=== PATIENT | female | born 1940 | race Caucasian/White ===

== ENCOUNTER 2020-05-07 15:46 | Emergency (ER) | payer MEDICARE, OTHER ==
[~2020-05-07] VITALS: Ht 157.5 cm; Wt 56.4 kg
[2020-05-07] MEDS ORDERED: POLY17PO10 PO (16:10)
[2020-05-07] MEDS ORDERED: HYDR25SU32 RC (16:10)
[2020-05-07] MEDS ORDERED: DOCU-91 PO (16:10)
[2020-05-07 16:39] VITALS: BP 129/69
--- NOTE | 2020-05-07 16:39 | NUR ---
DISCHARGING PATIENT FOR PRIMARY RN KATTY
== END 2020-05-07 16:44 | disposition home or self-care (01) ==
LOC: ER 15:47
DX: K64.9 Unspecified hemorrhoids (principal); K59.00 Constipation, unspecified; Z88.5 Allergy status to narcotic agent; Z79.899 Other long term (current) drug therapy
CPT/HCPCS: 99283

== ENCOUNTER 2020-05-12 07:39 | Emergency (ER) | payer MEDICARE, OTHER ==
[~2020-05-12] VITALS: Ht 157.5 cm; Wt 55.7 kg
[~2020-05-12 07:39] MED LIST: DOCU-91 PO; HYDR25SU32 RC; POLY17PO10 PO
[2020-05-12 09:06] LABS: BASOPHILS % (AUTO) 0.5 % (0-1); EOSINOPHILS % (AUTO) 0.1 % (0-6); HEMOGLOBIN 11.2 g/dl (12.0-16.0); LYMPHOCYTES # (AUTO) 1.1 X10'3 (1.1-4.8); LYMPHOCYTES % (AUTO) 14.8 % (21-51); MEAN CORPUSCULAR HEMOGLOBIN 29.2 PG (27.0-31.0); MEAN CORPUSCULAR HGB CONC 32.8 g/dL (33.0-36.5); MEAN PLATELET VOLUME 6.7 FL (7.4-10.4); MONOCYTES # (AUTO) 0.6 X10'3 (0-0.9); MONOCYTES % (AUTO) 8.7 % (2-12); NEUTROPHILS # (AUTO) 5.4 X10'3 (1.8-7.7); NEUTROPHILS % (AUTO) 75.9 % (42-75); PLATELET COUNT 399 X10'3 (140-440); RED BLOOD COUNT 3.83 X10'6 (4.20-5.60); RED CELL DISTRIBUTION WIDTH 13.1 % (11.5-14.5); WHITE BLOOD COUNT 7.1 X10'3 (4.5-11.0)
[2020-05-12 09:17] LABS: ALANINE AMINOTRANSFERASE 40 U/L (12-78); ALBUMIN 2.9 G/DL (3.4-5.0); ALBUMIN/GLOBULIN RATIO 0.8 (1.1-1.5); ALKALINE PHOSPHATASE 107 IU/L (46-116); ANION GAP 7 (8-16); ASPARTATE AMINO TRANSFERASE 58 U/L (10-37); BLOOD UREA NITROGEN 19 MG/DL (7-18); BUN/CREATININE RATIO 24.4 (6.6-38.0); CALCIUM 8.8 MG/DL (8.5-10.1); CHLORIDE 104 MMOL/L (99-107); CREATININE 0.78 MG/DL (0.40-0.90); GLUCOSE 92 MG/DL (70-104); LIPASE 65 U/L (73-393); POTASSIUM 3.7 MMOL/L (3.5-5.1); SODIUM 140 MMOL/L (135-145); TOTAL PROTEIN 6.6 G/DL (6.4-8.2); eGFR 71 ML/MIN
[2020-05-12] MEDS ORDERED: iohexol 300mg/ml 100ml inj. ONE (09:31)
[2020-05-12 09:56] LABS: CLARITY,URINE SLIGHTLY CLOUDY (Clear); COLOR,URINE YELLOW (Yellow); GLUCOSE, URINE NEGATIVE (Neg); LEUKOCYTE ESTERASE ,URINE NEGATIVE (Neg); NITRITES, URINE NEGATIVE (Neg); OCCULT BLOOD,URINE NEGATIVE (Neg)
[2020-05-12 09:59] LABS: KETONES,URINE 40 mg/dl (Neg); PROTEIN,URINE NEGATIVE (Neg)
[2020-05-12 10:01] LABS: UA COLLECTION TYPE STRAIGHT CATH
[2020-05-12 10:05] LABS: MUCUS STRANDS MANY /LPF (Neg); SQUAMOUS EPITHELIAL CELL,UR FEW /LPF (FEW)
[2020-05-12 10:09] LABS: BACTERIA,URINE FEW /HPF (Neg); RBC,URINE 0-2 /HPF (0-2); WBC,URINE 0-4 /HPF (0-4)
[2020-05-12] MEDS ORDERED: MAGN400O6 PO (11:12)
[2020-05-12 11:13] VITALS: BP 125/82
== END 2020-05-12 11:59 | disposition home or self-care (01) ==
LOC: ER 07:40
DX: K59.00 Constipation, unspecified (principal); R18.0 Malignant ascites; Z98.890 Other specified postprocedural states; Z88.8 Allergy status to other drugs, medicaments and biological substances; Z79.899 Other long term (current) drug therapy
CPT/HCPCS: 36415; 74177; 80053; 81001; 83690; 85025; 93005; 99285; Q9967

== ENCOUNTER 2020-06-03 08:35 | Day surgery (SDC) | payer MEDICARE, OTHER ==
[~2020-06-03] VITALS: Ht 157.5 cm; Wt 61.9 kg
[~2020-06-03 08:35] MED LIST changes: +MAGN400O6 PO
[2020-06-03] MEDS ORDERED: normal saline 1000ml 1,000 ML IV PRN (09:20)
[2020-06-03 09:30] VITALS: BP 152/92
[2020-06-03] MEDS ORDERED: LEVO112T72 PO (10:05)
[2020-06-03] MEDS ORDERED: HYDR25TA4 PO (10:05)
[2020-06-03] MEDS ORDERED: DONE-46 PO (10:05)
[2020-06-03] MEDS ORDERED: ATOR40TA72 PO (10:05)
[2020-06-03] MEDS ORDERED: HYDR-3964 PO (10:05)
[2020-06-03] MEDS ORDERED: PANT40TA54 PO (10:05)
[2020-06-03 10:12] LABS: BASOPHILS % (AUTO) 0.7 % (0-1); EOSINOPHILS % (AUTO) 0.2 % (0-6); HEMATOCRIT 39.7 % (35.0-45.0); HEMOGLOBIN 13.2 g/dl (12.0-16.0); LYMPHOCYTES # (AUTO) 1.6 X10'3 (1.1-4.8); LYMPHOCYTES % (AUTO) 21.8 % (21-51); MEAN CORPUSCULAR HEMOGLOBIN 30.2 PG (27.0-31.0); MEAN CORPUSCULAR HGB CONC 33.3 g/dL (33.0-36.5); MEAN CORPUSCULAR VOLUME 90.6 FL (78-98); MEAN PLATELET VOLUME 7.6 FL (7.4-10.4); MONOCYTES # (AUTO) 0.6 X10'3 (0-0.9); NEUTROPHILS # (AUTO) 5.1 X10'3 (1.8-7.7); NEUTROPHILS % (AUTO) 69.3 % (42-75); PLATELET COUNT 430 X10'3 (140-440); RED BLOOD COUNT 4.38 X10'6 (4.20-5.60); RED CELL DISTRIBUTION WIDTH 14.8 % (11.5-14.5); WHITE BLOOD COUNT 7.3 X10'3 (4.5-11.0)
--- NOTE | 2020-06-03 12:00 | NUR ---
Dr. Nuno came and changed from CT guided liver biopsy to paracentesis. Addendum: 06/03/20 at 1719 by Albert Palacios RN Amended: Links added.
[2020-06-03 12:07] VITALS: BP 134/84
[2020-06-03 12:15] VITALS: BP 137/80
[2020-06-03] MEDS ORDERED: albumin (human) 25% 100 ML IV solution IV ONE (12:25)
[2020-06-03 12:30] VITALS: BP 128/74
[2020-06-03 12:45] VITALS: BP 136/72
[2020-06-03 13:03] LABS: GLUCOSE,BODY FLUID 78 MG/DL; LDH,BODY FLUID 178 U/L
[2020-06-03 14:09] LABS: LYMPHOCYTES,BODY FLUID 71 %; MONOCYTES,BODY FLUID 28 %; NEUTROPHILS,BODY FLUID 1 %
[2020-06-03 14:10] LABS: BF RBC COUNT 1575 /CU MM; BF WBC COUNT 368 /CU MM (0-1000); BFAPPEAR CLEAR; BFCOLOR YELLOW; BFVOLUME 65 ML
[2020-06-03 14:11] LABS: OTHER CELLS,BODY FLUID MACROPHAGES
== END 2020-06-03 13:40 | disposition home or self-care (01) ==
LOC: SSTAY O 08:35
PROVIDERS: ATTEND Radiology Diagnostic Radiology
DX: R18.8 Other ascites (principal); K76.89 Other specified diseases of liver; K74.60 Unspecified cirrhosis of liver; Z85.3 Personal history of malignant neoplasm of breast; Z85.850 Personal history of malignant neoplasm of thyroid; Z90.13 Acquired absence of bilateral breasts and nipples; Z88.5 Allergy status to narcotic agent; Z79.899 Other long term (current) drug therapy
CPT/HCPCS: 36415; 49083; 82945; 83615; 84157; 85025; 87070; 89051; J7030; P9047; 88108; 88305

== ENCOUNTER 2020-06-14 09:23 | Emergency (ER) | payer MEDICARE, OTHER ==
[~2020-06-14] VITALS: Ht 157.5 cm; Wt 61.0 kg
[~2020-06-14 09:23] MED LIST changes: +ATOR40TA72 PO; +DONE-46 PO; +HYDR-3964 PO; +HYDR25TA4 PO; +LEVO112T72 PO; +PANT40TA54 PO; -POLY17PO10 PO
[2020-06-14 10:05] LABS: BASOPHILS % (AUTO) 0.4 % (0-1); EOSINOPHILS % (AUTO) 0.2 % (0-6); HEMOGLOBIN 11.1 g/dl (12.0-16.0); LYMPHOCYTES % (AUTO) 17.3 % (21-51); MEAN CORPUSCULAR HGB CONC 33.7 g/dL (33.0-36.5); MEAN CORPUSCULAR VOLUME 89.1 FL (78-98); MEAN PLATELET VOLUME 6.7 FL (7.4-10.4); MONOCYTES # (AUTO) 0.6 X10'3 (0-0.9); MONOCYTES % (AUTO) 10.3 % (2-12); NEUTROPHILS # (AUTO) 4.3 X10'3 (1.8-7.7); NEUTROPHILS % (AUTO) 71.8 % (42-75); PLATELET COUNT 437 X10'3 (140-440); RED CELL DISTRIBUTION WIDTH 14.6 % (11.5-14.5)
[2020-06-14] MEDS ORDERED: albumin (human) 25% 100 ML IV solution IV ONE (10:05)
[2020-06-14 10:20] LABS: ALANINE AMINOTRANSFERASE 27 U/L (12-78); ALBUMIN 2.7 G/DL (3.4-5.0); ALBUMIN/GLOBULIN RATIO 0.7 (1.1-1.5); ALKALINE PHOSPHATASE 118 IU/L (46-116); ANION GAP 10 (8-16); ASPARTATE AMINO TRANSFERASE 52 U/L (10-37); BILIRUBIN,TOTAL 0.9 MG/DL (0.1-1.0); BLOOD UREA NITROGEN 23 MG/DL (7-18); BUN/CREATININE RATIO 22.5 (6.6-38.0); CALCIUM 8.2 MG/DL (8.5-10.1); CHLORIDE 102 MMOL/L (99-107); CREATININE 1.02 MG/DL (0.40-0.90); GLUCOSE 89 MG/DL (70-104); POTASSIUM 4.1 MMOL/L (3.5-5.1); SODIUM 140 MMOL/L (135-145); TOTAL CARBON DIOXIDE 28.1 MMOL/L (24-32); TOTAL PROTEIN 6.6 G/DL (6.4-8.2); eGFR 52 ML/MIN
[2020-06-14 11:30] VITALS: BP 132/73
[2020-06-14 11:31] LABS: BODY FLUID PH (NON-PLEURAL) 7.5
[2020-06-14 11:51] LABS: BF MESOTHELIAL CELLS OCCASIONAL; BF RBC COUNT 14500 /CU MM; BF WBC COUNT 350 /CU MM (0-1000); BFAPPEAR BLOODY; BFCOLOR RED; BFVOLUME 56 ML; LYMPHOCYTES,BODY FLUID 75 %; MONOCYTES,BODY FLUID 24 %; NEUTROPHILS,BODY FLUID 1 %
[2020-06-14 11:52] LABS: GLUCOSE,BODY FLUID 80 MG/DL; TOTAL PROTEIN,BODY FLUID 3.6 G/DL
== END 2020-06-14 12:00 | disposition home or self-care (01) ==
LOC: ER 09:23
DX: R18.8 Other ascites (principal); R14.0 Abdominal distension (gaseous); R06.02 Shortness of breath; R10.84 Generalized abdominal pain; K59.00 Constipation, unspecified; Z85.3 Personal history of malignant neoplasm of breast; Z98.890 Other specified postprocedural states; Z88.5 Allergy status to narcotic agent; Z79.899 Other long term (current) drug therapy
CPT/HCPCS: 36415; 49083; 71045; 80053; 82945; 83986; 84157; 85025; 87070; 89051; 93005; 96374; 99285; P9047; 87186

== ENCOUNTER 2020-07-08 07:22 | Observation (INO) | payer MEDICARE, OTHER ==
[~2020-07-08] VITALS: Ht 157.5 cm; Wt 55.9 kg
[~2020-07-08 07:22] MED LIST changes: +CALC500T11 PO; -DOCU-91 PO; +FAMO20TA47 PO; -HYDR25SU32 RC; -MAGN400O6 PO; -PANT40TA54 PO; +POLY119P2 PO
[2020-07-08 08:34] LABS: BASOPHILS % (AUTO) 0.4 % (0-1); EOSINOPHILS % (AUTO) 0.1 % (0-6); HEMATOCRIT 32.8 % (35.0-45.0); HEMOGLOBIN 10.8 g/dl (12.0-16.0); LYMPHOCYTES % (AUTO) 16.5 % (21-51); MEAN CORPUSCULAR HGB CONC 32.8 g/dL (33.0-36.5); MEAN CORPUSCULAR VOLUME 88.2 FL (78-98); MEAN PLATELET VOLUME 6.6 FL (7.4-10.4); MONOCYTES # (AUTO) 0.7 X10'3 (0-0.9); MONOCYTES % (AUTO) 12.3 % (2-12); NEUTROPHILS # (AUTO) 4.3 X10'3 (1.8-7.7); NEUTROPHILS % (AUTO) 70.7 % (42-75); PLATELET COUNT 384 X10'3 (140-440); RED BLOOD COUNT 3.71 X10'6 (4.20-5.60); RED CELL DISTRIBUTION WIDTH 15.9 % (11.5-14.5)
[2020-07-08 08:44] LABS: ALANINE AMINOTRANSFERASE 25 U/L (12-78); ALBUMIN 2.2 G/DL (3.4-5.0); ALBUMIN/GLOBULIN RATIO 0.6 (1.1-1.5); ALKALINE PHOSPHATASE 112 IU/L (46-116); ANION GAP 7 (8-16); ASPARTATE AMINO TRANSFERASE 54 U/L (10-37); BILIRUBIN,TOTAL 0.6 MG/DL (0.1-1.0); BLOOD UREA NITROGEN 24 MG/DL (7-18); BUN/CREATININE RATIO 24.5 (6.6-38.0); CALCIUM 7.6 MG/DL (8.5-10.1); CHLORIDE 102 MMOL/L (99-107); CREATININE 0.98 MG/DL (0.40-0.90); GLUCOSE 69 MG/DL (70-104); POTASSIUM 4.3 MMOL/L (3.5-5.1); SODIUM 135 MMOL/L (135-145); TOTAL CARBON DIOXIDE 26.1 MMOL/L (24-32); TOTAL PROTEIN 5.7 G/DL (6.4-8.2); eGFR 54 ML/MIN
[2020-07-08 08:47] LABS: TROPONIN I < 0.04 NG/ML (0.0-0.05)
[2020-07-08] MEDS ORDERED: labetalol 100mg tablet PO SCH (10:05)
[2020-07-08] MEDS ORDERED: lisinopril 10 MG tablet PO ONE (10:05)
[2020-07-08] MEDS ORDERED: mag hydrox/Alum hydrox/simeth 30ml oral suspension PO PRN (10:40)
[2020-07-08] MEDS ORDERED: magnesium hydroxide 30ml (MOM) UD suspension PO PRN (10:40)
[2020-07-08] MEDS ORDERED: acetaminophen 325mg tablet PO PRN ×2 (10:40)
[2020-07-08] MEDS ORDERED: morphine 2 MG/ML inj. syringe IV PRN ×2 (10:40)
[2020-07-08] MEDS ORDERED: ondansetron/PF 4mg/2ml inj IV PRN (10:40)
[2020-07-08] MEDS: dextrose 5%-1/2 normal saline 1,000 ML IV SCH ×3 (11:20→23:58)
--- NOTE | 2020-07-08 11:47 | NUR ---
SISTER TANO [phone]
[2020-07-08 12:26] LABS: BASOPHILS,BODY FLUID 1 %; BF MESOTHELIAL CELLS FEW; BF RBC COUNT 730 /CU MM; BF WBC COUNT 200 /CU MM (0-1000); BFAPPEAR HAZY; BFCOLOR YELLOW; BFVOLUME 22 ML; LYMPHOCYTES,BODY FLUID 94 %; MONOCYTES,BODY FLUID 4 %; NEUTROPHILS,BODY FLUID 1 %
[2020-07-08] MEDS ORDERED: ANUHCR RC (12:26)
[2020-07-08 12:27] LABS: BF UNCLASSIFIED CELLS OCCASIONAL
--- NOTE | 2020-07-08 12:31 | NUR ---
Ramone parra in [facility] - 07/08/20 at 1625 by NINA Pg sent to Dr. Estrada re: lab call regarding CSF sample
--- NOTE | 2020-07-08 12:31 | NUR ---
Pg to Dr. Estrada re: cytology report, awaiting return pg
[2020-07-08 15:00] VITALS: BP 98/57
--- NOTE | 2020-07-08 16:25 | NUR ---
error in notes from 1231, was cytology report, not CSF
--- NOTE | 2020-07-08 16:34 | NUR ---
FARRUKH richardson f/u with re: lab result from cytology
--- NOTE | 2020-07-08 16:40 | NUR ---
Pt Juliet Issa [id number], new patient received para in ED, lab found possible malignant cells in fluid, do you want a cytology? Lab needs to know madi. Vicki Boyd [facility] [phone]
[2020-07-08 18:00] VITALS: BP 94/53
--- NOTE | 2020-07-08 18:53 | NUR ---
Patient in room PCU 3025. I have received report from Vicki CHADWICK and had the opportunity to ask questions and assume patient care.Pt is resting. No signs of distress, will continue to monitor.
[2020-07-08 22:00] VITALS: BP 97/55
[2020-07-09 06:00] VITALS: BP 105/70
--- NOTE | 2020-07-09 06:29 | NUR ---
Problems reprioritized. Patient report given, questions answered & plan of care reviewed with Priscila CHADWICK.
--- NOTE | 2020-07-09 06:33 | NUR ---
Patient in room PCU 3025. I have received report from Stephanie CHADWICK and had the opportunity to ask questions and assume patient care.
[2020-07-09 07:16] LABS: BASOPHILS % (AUTO) 0.5 % (0-1); EOSINOPHILS % (AUTO) 0.3 % (0-6); HEMATOCRIT 29.3 % (35.0-45.0); HEMOGLOBIN 9.7 g/dl (12.0-16.0); LYMPHOCYTES % (AUTO) 19.6 % (21-51); MEAN CORPUSCULAR HEMOGLOBIN 29.3 PG (27.0-31.0); MEAN CORPUSCULAR HGB CONC 33.1 g/dL (33.0-36.5); MEAN CORPUSCULAR VOLUME 88.5 FL (78-98); MEAN PLATELET VOLUME 6.9 FL (7.4-10.4); MONOCYTES # (AUTO) 0.6 X10'3 (0-0.9); MONOCYTES % (AUTO) 12.6 % (2-12); NEUTROPHILS # (AUTO) 3.3 X10'3 (1.8-7.7); PLATELET COUNT 325 X10'3 (140-440); RED BLOOD COUNT 3.31 X10'6 (4.20-5.60); RED CELL DISTRIBUTION WIDTH 15.8 % (11.5-14.5); WHITE BLOOD COUNT 4.9 X10'3 (4.5-11.0)
[2020-07-09 07:23] LABS: ALBUMIN 1.7 G/DL (3.4-5.0); ANION GAP 5 (8-16); BLOOD UREA NITROGEN 19 MG/DL (7-18); BUN/CREATININE RATIO 22.1 (6.6-38.0); CALCIUM 7.1 MG/DL (8.5-10.1); CHLORIDE 104 MMOL/L (99-107); CREATININE 0.86 MG/DL (0.40-0.90); GLUCOSE 110 MG/DL (70-104); POTASSIUM 4.2 MMOL/L (3.5-5.1); SODIUM 135 MMOL/L (135-145); TOTAL CARBON DIOXIDE 26.2 MMOL/L (24-32); eGFR 63 ML/MIN
[2020-07-09] MEDS ORDERED: levoTHYROXINE 112mcg tablet PO SCH (08:00)
[2020-07-09] MEDS ORDERED: donepezil 5mg tablet PO SCH (08:00)
--- NOTE | 2020-07-09 09:40 | NUR ---
patient too confused to [facility]
--- NOTE | 2020-07-09 09:46 | NUR ---
Called , Rush. Left message to have him call me back for tow picker.
--- NOTE | 2020-07-09 10:45 | NUR ---
Patient discharged home in stable condition. IV removed, cannula intact. Tele monitor discontinued and returned to television inspector. All discharge instructions reviewed with , with no further questions. Patient taken via wheelchair to personal vehicle driven by , with all belongings on person. Patient concerned that we didn't have her purse. I confirmed with the that her purse was at home.
--- NOTE | 2020-07-10 12:06 | NUR ---
CASE MANAGEMENT DISCHARGE FOLLOW UP: Spoke with pt's sister/caregiver, Elinor, via telephone. She reports that pt is "doing good," still forgetful r/t hx dementia. Verbalizes understanding of s/sx requiring further evaluation/emergent assistance. Verbalizes understanding of pt medications. Verbalizes compliance with MD discharge instructions. Verbalizes understanding of the importance in making/keeping follow-up appointments, awaiting call back from oncologist. Advised discharging MD wants pt to see PCP within 1 week of discharge, she states that she will make sure that pt's is aware and that appt is set up. She states no further questions/concerns at this time.
== END 2020-07-09 10:40 | disposition home or self-care (01) ==
LOC: ER 07:24 → ED HOLD 10:40 → PCU 3S 15:05
PROVIDERS: ADMIT Internal Medicine; ATTEND Internal Medicine
DX: F07.81 Postconcussional syndrome (principal); R18.8 Other ascites; R55 Syncope and collapse; C16.9 Malignant neoplasm of stomach, unspecified; E03.9 Hypothyroidism, unspecified; F03.90 Unspecified dementia, unspecified severity, without behavioral disturbance, psychotic disturbance, mood disturbance, and anxiety; E78.5 Hyperlipidemia, unspecified; K21.9 Gastro-esophageal reflux disease without esophagitis; K74.60 Unspecified cirrhosis of liver; D64.9 Anemia, unspecified; E43 Unspecified severe protein-calorie malnutrition; Z87.891 Personal history of nicotine dependence; Z85.3 Personal history of malignant neoplasm of breast; Z90.13 Acquired absence of bilateral breasts and nipples; Z79.899 Other long term (current) drug therapy; Z88.5 Allergy status to narcotic agent; W01.10XA Fall on same level from slipping, tripping and stumbling with subsequent striking against unspecified object, initial encounter; Y93.89 Activity, other specified; Y92.009 Unspecified place in unspecified non-institutional (private) residence as the place of occurrence of the external cause
CPT/HCPCS: 36415; 49083; 70450; 71045; 72125; 80048; 80053; 83880; 84484; 85025; 85610; 87070; 87081; 88341; 89051; 93005; 96360; 96361; 97161; 97530; 99285; G0378; 88108; 88305; 88342

== ENCOUNTER 2020-07-19 06:43 | Emergency (ER) | payer MEDICARE, OTHER ==
[~2020-07-19] VITALS: Ht 157.5 cm; Wt 56.8 kg
[~2020-07-19 06:43] MED LIST changes: +ANUHCR RC; -ATOR40TA72 PO; -CALC500T11 PO; -FAMO20TA47 PO; -HYDR-3964 PO; -HYDR25TA4 PO; -POLY119P2 PO
[2020-07-19 08:46] VITALS: BP 117/71
[2020-07-19 09:32] LABS: BFAPPEAR HAZY; BFCOLOR YELLOW; LYMPHOCYTES,BODY FLUID 89 %; MONOCYTES,BODY FLUID 11 %
[2020-07-19 09:33] LABS: BF RBC COUNT 400 /CU MM; BF WBC COUNT 405 /CU MM (0-1000); BFVOLUME 60 ML; NEUTROPHILS,BODY FLUID 0 %
== END 2020-07-19 09:55 | disposition home or self-care (01) ==
LOC: ER 06:44
DX: C78.6 Secondary malignant neoplasm of retroperitoneum and peritoneum (principal); R18.0 Malignant ascites; R10.9 Unspecified abdominal pain; C50.919 Malignant neoplasm of unspecified site of unspecified female breast; R06.02 Shortness of breath; K21.9 Gastro-esophageal reflux disease without esophagitis; E03.9 Hypothyroidism, unspecified; Z85.3 Personal history of malignant neoplasm of breast; Z98.890 Other specified postprocedural states; Z88.5 Allergy status to narcotic agent; Z79.899 Other long term (current) drug therapy
CPT/HCPCS: 49083; 87070; 89051; 99285

== ENCOUNTER 2020-07-29 07:45 | Emergency (ER) | payer MEDICARE, OTHER ==
[~2020-07-29] VITALS: Ht 157.5 cm; Wt 50.8 kg
[2020-07-29] MEDS ORDERED: albumin (human) 25% 100 ML IV solution IV ONE ×2 (07:55→10:15)
--- NOTE | 2020-07-29 08:38 | NUR ---
spoke with pt's Rush on the phone and was asking if we are allowed to use the port in her chest for medications. he states he called her doctor's office and they said "no". primary nurse Haley ilnd and MD Yudi lind as well.
[2020-07-29 10:49] VITALS: BP 111/67
--- NOTE | 2020-07-29 10:49 | NUR ---
RIGHT ABDOMEN PARACENTESIS SITE CLEAN DRY AND DRESSING INTACT
--- NOTE | 2020-07-29 11:12 | NUR ---
PATIENT WILL FOLLOW UP WITH PMD DUONG AND ONCOLOGIST. ESCORTED TO HER HUSBANDS CAR
== END 2020-07-29 11:13 | disposition home or self-care (01) ==
LOC: ER 07:46
DX: R14.0 Abdominal distension (gaseous) (principal); R18.0 Malignant ascites; R06.02 Shortness of breath; K21.9 Gastro-esophageal reflux disease without esophagitis; Z85.3 Personal history of malignant neoplasm of breast; Z98.890 Other specified postprocedural states; Z88.5 Allergy status to narcotic agent; Z79.899 Other long term (current) drug therapy
CPT/HCPCS: 49083; 96365; 96366; 99285; P9047

== ENCOUNTER 2021-02-07 06:08 | Day surgery (SDC) | payer MEDICARE, OTHER ==
[~2021-02-07] VITALS: Ht 157.5 cm; Wt 48.7 kg
[2021-02-07] MEDS ORDERED: albumin 25% 100mL bottle x 1 IV PRN (06:40)
[2021-02-07 06:58] VITALS: BP 137/68
[2021-02-07] MEDS ORDERED: CITA10TA14 PO (07:03)
[2021-02-07] MEDS ORDERED: SPIR25TA5 PO (07:03)
[2021-02-07] MEDS ORDERED: SENN-263 PO (07:03)
[2021-02-07] MEDS ORDERED: LIDO35.4 TOP (07:03)
[2021-02-07] MEDS ORDERED: [UNRECOGNIZED DRUG - CODE] PO (07:03)
[2021-02-07] MEDS ORDERED: FURO20TA4 PO (07:03)
[2021-02-07] MEDS ORDERED: LORA2ORA PO (07:03)
[2021-02-07] MEDS ORDERED: LOPE2CAP PO (07:03)
[2021-02-07 08:36] VITALS: BP 126/76
[2021-02-07 08:45] VITALS: BP 129/74
[2021-02-07 09:00] VITALS: BP 113/68
[2021-02-07 09:07] VITALS: BP 129/75
[2021-02-07 09:15] VITALS: BP 127/66
[2021-02-07] MEDS ORDERED: acetaminophen 325mg tablet PO ONE (09:40)
== END 2021-02-07 09:50 | disposition home or self-care (01) ==
LOC: SSTAY O 06:08
PROVIDERS: ATTEND Radiology Diagnostic Radiology
DX: R18.8 Other ascites (principal); I10 Essential (primary) hypertension; E78.5 Hyperlipidemia, unspecified; F03.90 Unspecified dementia, unspecified severity, without behavioral disturbance, psychotic disturbance, mood disturbance, and anxiety; E03.9 Hypothyroidism, unspecified; Z85.3 Personal history of malignant neoplasm of breast; Z85.028 Personal history of other malignant neoplasm of stomach; Z90.13 Acquired absence of bilateral breasts and nipples; Z87.891 Personal history of nicotine dependence; Z88.5 Allergy status to narcotic agent; Z79.899 Other long term (current) drug therapy
CPT/HCPCS: 49083

== ENCOUNTER 2021-04-24 06:03 | Day surgery (SDC) | payer MEDICARE, OTHER ==
[~2021-04-24] VITALS: Ht 157.5 cm; Wt 45.7 kg
[~2021-04-24 06:03] MED LIST changes: -ANUHCR RC; +CITA10TA14 PO; -DONE-46 PO; +FURO20TA4 PO; +LIDO35.4 TOP; +LOPE2CAP PO; +LORA2ORA PO; +SENN-263 PO; +SPIR25TA5 PO; +[UNRECOGNIZED DRUG - CODE] PO
[2021-04-24] MEDS ORDERED: LIDOcaine 1% 30ml preserv. free vial IJ STA (06:21)
[2021-04-24] MEDS ORDERED: normal saline 1000ml 1,000 ML IV PRN (06:25)
[2021-04-24] MEDS ORDERED: albumin 25% 100mL bottle x 1 IV PRN (06:25)
[2021-04-24 07:00] VITALS: BP 128/78
--- NOTE | 2021-04-24 08:30 | NUR ---
Minimal fluid on ultrasound. No paracentesis performed.
== END 2021-04-24 08:30 | disposition home or self-care (01) ==
LOC: SSTAY O 06:03
PROVIDERS: ATTEND Radiology Vascular & Interventional Radiology
DX: R18.8 Other ascites (principal); Z53.8 Procedure and treatment not carried out for other reasons; E78.5 Hyperlipidemia, unspecified; F03.90 Unspecified dementia, unspecified severity, without behavioral disturbance, psychotic disturbance, mood disturbance, and anxiety; I10 Essential (primary) hypertension; E03.9 Hypothyroidism, unspecified; Z85.028 Personal history of other malignant neoplasm of stomach; Z85.3 Personal history of malignant neoplasm of breast; Z90.13 Acquired absence of bilateral breasts and nipples; Z87.891 Personal history of nicotine dependence; Z88.5 Allergy status to narcotic agent; Z79.899 Other long term (current) drug therapy
CPT/HCPCS: 76705